=== PATIENT | female | born 2000 | race Caucasian/White ===

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

== ENCOUNTER 2022-02-28 06:00 | Emergency (ER) | payer BC ==
[~2022-02-28] VITALS: Ht 157.5 cm; Wt 41.0 kg
[2022-02-28] VITALS (8 sets, daily range): BP systolic 89–109; BP diastolic 56–71
[~2022-02-28 06:00] MED LIST changes: +NAPROSYN250 MG PO; +ONDANSETRON4 MG PO
[2022-02-28] MEDS ORDERED: UBRELVY50 MG PO (06:24)
[2022-02-28] MEDS ORDERED: CITALOPRAM10 M1 PO (06:24)
[2022-02-28 06:32] LABS: HEMATOCRIT 38.9 % (37.0-47.0); HEMOGLOBIN 12.6 g/dl (12.0-16.0); IMMATURE GRANULOCYTES 0.2 % (0.0-5.0); MEAN CELL VOLUME 89.2 fL CALC (80.0-100.0); MEAN CORPUSCULAR HGB 28.9 pG CALC (26.0-32.0); MEAN CORPUSCULAR HGB CONC 32.4 g/dL CAL (32.0-36.0); NEUT# 13.45 thou/uL (2.00-7.15); RED BLOOD COUNT 4.36 mill/uL (4.20-5.60); RED CELL DISTRI WIDTH 12.2 % (11.5-15.5)
[2022-02-28 06:49] LABS: ALBUMIN 4.3 g/dL (3.2-5.0); ALKALINE PHOSPHATASE 77 u/l (38-126); ANION GAP 15 (6-22 (CALC)); BILIRUBIN, TOTAL 0.9 mg/dL (0.0-1.4); BUN 5 mg/dL (7-17); BUN/CREATININE RATIO 8 (12-20 (CALC)); CARBON DIOXIDE 23 mmol/l (22-30); CHLORIDE 98 mmol/l (95-108); CREATININE 0.6 mg/dL (0.5-1.0); GFR FOR AFR.AMER. > 60 ML/MIN (>=60 (CALC)); GFR OTHER RACES > 60 ML/MIN (>=60 (CALC)); LIPASE < 10 u/l (23-300); POTASSIUM 3.6 mmol/l (3.5-5.1); SGOT/AST 29 u/l (14-36); SODIUM 132 mmol/l (137-146); TOTAL PROTEIN 7.8 g/dL (6.3-8.2)
[2022-02-28 07:37] LABS: URINE BILIRUBIN - DIPSTICK NEGATIVE (NEGATIVE); URINE BLOOD DIPSTICK TRACE-INTACT (NEGATIVE); URINE COLOR YELLOW; URINE GLUCOSE - DIPSTICK NEGATIVE (NEGATIVE); URINE KETONE NEGATIVE (NEGATIVE); URINE PROTEIN - DIPSTICK TRACE mg/dL (NEG-TRACE)
[2022-02-28 07:38] LABS: URINE LEUK ESTERASE SMALL (NEGATIVE); URINE NITRITE - DIPSTICK POSITIVE (Negative)
[2022-02-28 07:48] LABS: URINE WBC 50-100 WBC/hpf (0-5)
[2022-02-28 07:49] LABS: URINE BACTERIA MANY hpf; URINE SQUAMOUS EPITHELIAL CELL FEW EPI/hpf (0-FEW)
[2022-02-28] MEDS ORDERED: ZOFRAN4 MG/TAB PO (08:27)
[2022-02-28] MEDS ORDERED: OMNICEF300 M1 PO (08:27)
== END 2022-02-28 09:10 | disposition home or self-care (01) | DRG 690 ==
LOC: ED 06:00
PROVIDERS: Family Medicine
DX: N12 Tubulo-interstitial nephritis, not specified as acute or chronic (principal); Z87.440 Personal history of urinary (tract) infections
CPT/HCPCS: Q9967

== ENCOUNTER 2022-05-23 17:04 | Emergency (ER) | payer SELFPAY ==
[~2022-05-23] VITALS: Ht 157.5 cm; Wt 45.0 kg
[~2022-05-23 17:04] MED LIST changes: +CITALOPRAM10 M1 PO; +OMNICEF300 M1 PO; +UBRELVY50 MG PO; +ZOFRAN4 MG/TAB PO
[2022-05-23 17:55] VITALS: BP 112/84
[2022-05-23 18:02] VITALS: BP 127/70
[2022-05-23 18:23] VITALS: BP 98/73
[2022-05-23 18:30] VITALS: BP 106/85
[2022-05-23 18:30] LABS: HEMATOCRIT 39.9 % (37.0-47.0); HEMOGLOBIN 13.5 g/dl (12.0-16.0); IMMATURE GRANULOCYTES 0.1 % (0.0-5.0); MEAN CELL VOLUME 86.9 fL CALC (80.0-100.0); MEAN CORPUSCULAR HGB 29.4 pG CALC (26.0-32.0); MEAN CORPUSCULAR HGB CONC 33.8 g/dL CAL (32.0-36.0); NEUT# 9.74 thou/uL (2.00-7.15); RED BLOOD COUNT 4.59 mill/uL (4.20-5.60); RED CELL DISTRI WIDTH 11.8 % (11.5-15.5)
[2022-05-23 18:43] LABS: ALBUMIN 4.4 g/dL (3.2-5.0); ALKALINE PHOSPHATASE 76 u/l (38-126); ANION GAP 12 (6-22 (CALC)); BILIRUBIN, TOTAL 0.8 mg/dL (0.0-1.4); BUN 10 mg/dL (7-17); BUN/CREATININE RATIO 15 (12-20 (CALC)); CARBON DIOXIDE 24 mmol/l (22-30); CHLORIDE 106 mmol/l (95-108); CREATININE 0.7 mg/dL (0.5-1.0); GFR FOR AFR.AMER. > 60 ML/MIN (>=60 (CALC)); GFR OTHER RACES > 60 ML/MIN (>=60 (CALC)); HCG SERUM/URINE (NEG/POS) NEGATIVE (NEGATIVE); POTASSIUM 3.8 mmol/l (3.5-5.1); SGOT/AST 41 u/l (14-36); SODIUM 138 mmol/l (137-146); TOTAL PROTEIN 7.8 g/dL (6.3-8.2)
[2022-05-23 19:00] VITALS: BP 114/85
[2022-05-23] MEDS ORDERED: REGLAN10 MG PO (19:58)
[2022-05-23 20:44] VITALS: BP 114/85
== END 2022-05-23 20:44 | disposition home or self-care (01) | DRG 392 ==
LOC: ED 17:04
PROVIDERS: Nurse Practitioner
DX: R11.2 Nausea with vomiting, unspecified (principal)

== ENCOUNTER 2022-06-17 04:16 | Emergency (ER) | payer SELFPAY ==
[~2022-06-17] VITALS: Ht 157.5 cm; Wt 43.0 kg
[2022-06-17] VITALS (9 sets, daily range): BP systolic 106–133; BP diastolic 66–92
[~2022-06-17 04:16] MED LIST changes: +REGLAN10 MG PO
[2022-06-17 05:18] LABS: BASO% 0.3 % (0-3); EOS% 0.5 % (0-8); HEMOGLOBIN 13.3 g/dl (12.0-16.0); IMMATURE GRANULOCYTES 0.2 % (0.0-5.0); LYMPH% 23.7 % (15-41); MEAN CELL VOLUME 88.2 fL CALC (80.0-100.0); MEAN CORPUSCULAR HGB 30.1 pG CALC (26.0-32.0); MEAN CORPUSCULAR HGB CONC 34.1 g/dL CAL (32.0-36.0); MONO% 7.1 % (2-13); NEUT# 3.91 thou/uL (2.00-7.15); NEUT% 68.2 % (42-76); RED BLOOD COUNT 4.42 mill/uL (4.20-5.60); RED CELL DISTRI WIDTH 12.8 % (11.5-15.5)
[2022-06-17] MEDS ORDERED: PHENERGAN25 MG RE (06:20)
== END 2022-06-17 06:39 | disposition home or self-care (01) | DRG 392 ==
LOC: ED 04:16
PROVIDERS: Family Medicine
DX: R11.2 Nausea with vomiting, unspecified (principal)